=== PATIENT | male | born 2005 | race Two or more races ===

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

== ENCOUNTER 2025-02-20 09:49 | Emergency (ER) | payer MEDICAID ==
[~2025-02-20] VITALS: Ht 175.3 cm; Wt 97.5 kg
[~2025-02-20 09:49] MED LIST: AMOX500C2 PO; IBUP-1955 PO
[2025-02-20 12:43] VITALS: BP 130/78; TEMP 98.2; O2SAT 69
== END 2025-02-20 12:46 | disposition home or self-care (01) ==
LOC: ER 09:59
DX: R07.89 Other chest pain (principal); F12.90 Cannabis use, unspecified, uncomplicated
CPT/HCPCS: 71046